=== PATIENT | male | born 1945 | race Caucasian/White ===

== ENCOUNTER 2018-12-17 14:59 | Outpatient (CLI) | payer MEDICARE | END 2018-12-17 23:59 | disposition home or self-care (01) | LOC: RAD 14:59 | PROVIDERS: ATTEND Family Medicine | DX: R13.12 Dysphagia, oropharyngeal phase (principal); R47.1 Dysarthria and anarthria; R49.0 Dysphonia; G20 Parkinson's disease | CPT/HCPCS: 74230 ==